=== PATIENT | male | born 1945 | race Caucasian/White ===

== ENCOUNTER 2017-04-23 15:38 | Emergency (ER) | payer MEDICARE ==
[2017-04-23] MEDS: PROVENTIL 2.5 MG/3 ML NEB IH ONE ×2 (15:46→20:03)
[2017-04-23] MEDS ORDERED: PROVENTIL 2.5 MG/3 ML NEB IH ONE ×2 (15:47→20:02)
[2017-04-23] MEDS ORDERED: ROCEPHIN 1 Gm-D5w 50 ml Bag** 1 G/50 ML IVPB IV ONE (16:02)
[2017-04-23] MEDS ORDERED: solu-MEDROL 125 MG ONE (16:02)
[2017-04-23] MEDS ORDERED: Sodium Chloride 0.9% 1000 ML 1,000 ML ONE (16:02)
--- NOTE | 2017-04-23 16:04 | ERPHSYRPT ---
- History of Present Illness Time Seen by Provider: 04/23/17 15:45 Source: patient, EMS Patient Subjective Stated Complaint: sob since wednesday. fever at home this week. nonproductive cough all week. sob noted on arrival. Triage Nursing Assessment: denies cp. fever and cough all week. labored breathing. skin warm and dry Physician History: CC: short of air hX: 71 y/o patient of Dr Mesa with hx of COPD and heart disease. He reports 5 day hx of cough, chills, short of air. He is on home oxygen 4 L. Worse today so called EMS. EMS noted initial pulse ox 60%. Improved on their oxygen and neb. Pt has no chest pain. Symptoms moderately severe. Severity of Dyspnea-Max: severe Severity of Dyspnea-Current: severe Allergies/Adverse Reactions: No Known Drug Allergies Allergy (Unverified 04/23/17 16:16) Home Medications: Aspirin 81 gm Chew [Baby Aspirin 81 mg Chew] 81 mg PO DAILY 07/02/14 [ History] Amlodipine Besylate 10 mg [Norvasc 10 MG] 10 mg PO QAM 06/17/16 [History] Atorvastatin Calcium 80 mg PO QPM 06/17/16 [History] Citalopram Hydrobromide [Celexa] 20 mg PO DAILY 06/17/16 [History] Diclofenac Sodium 75 mg PO BID 06/17/16 [History] Gabapentin [Neurontin] 2 tab PO BID 06/17/16 [History] Glipizide 5 mg [Glucotrol 5 MG] 5 mg PO UD 06/17/16 [History] Losartan Potassium 100 mg PO QPM 06/17/16 [History] Metformin HCl 500 mg [Glucophage 500 MG] 500 mg PO UD 06/17/16 [History] Tramadol HCl 50 mg [Ultram 50 mg] 50 mg PO HSPRN PRN 06/17/16 [History] Benzonatate 100 mg PO TID 04/23/17 [History] Pirfenidone [Esbriet] 801 mg PO TID 04/23/17 [History] Hx Tetanus, Diphtheria Vaccination/Date Given: Yes Hx Influenza Vaccination/Date Given: Yes Hx Pneumococcal Vaccination/Date Given: No Immunizations Up to Date: Yes - Review of Systems Constitutional: Chills, No Fever Eyes: No Symptoms Ears, Nose, & Throat: No Symptoms Respiratory: Cough, Dyspnea Cardiac: No Chest Pain Abdominal/Gastrointestinal: No Abdominal Pain, No Nausea, No Vomiting Genitourinary Symptoms: No Dysuria Musculoskeletal: No Back Pain Skin: No Rash Neurological: No Headache All Other Systems: Reviewed and Negative - Past Medical History Pertinent Past Medical History: Yes Neurological History: No Pertinent History ENT History: No Pertinent History Cardiac History: High Cholesterol, Hypertension, Other Respiratory History: Sleep Apnea Endocrine Medical History: Diabetes Type II Musculoskeletal History: Arthritis GI Medical History: Other History: No Pertinent History Psycho-Social History: Depression Male Reproductive Disorders: No Pertinent History Other Medical History: blood in stool - Past Surgical History Past Surgical History: Yes Neuro Surgical History: No Pertinent History Cardiac: Cardiac Catheterization, Cardiac Stent Respiratory: No Pertinent History Gastrointestinal: No Pertinent History Genitourinary: No Pertinent History Musculoskeletal: Orthopedic Surgery Male Surgical History: No Pertinent History Other Surgical History: NILES HIPS replacement. NILES SHOULDERS-surgery. LEFT FOOT. TONSILS ET ADNOID - Social History Smoking Status: Former smoker Exposure to second hand smoke: No Drug Use: none Patient Lives Alone: No - Nursing Vital Signs Nursing Vital Signs: Initial Vital Signs Temperature 99.9 F Temperature Source Rectal Pulse Rate 82 Respiratory Rate 22 Blood Pressure [Right Arm] 159/87 Pain Intensity 0 - Physical Exam General Appearance: alert Eye Exam: PERRL/EOMI Respiratory Exam: respiratory distress, diminished breath sounds Cardiovascular/Chest Exam: normal heart sounds, regular rate/rhythm Abdominal/Gastrointestinal Exam: soft, No tenderness, No distention Extremity Exam: non-tender, normal range of motion Neurologic Exam: alert, oriented x 3, cooperative, sensation nml, No motor deficits Skin Exam: warm, dry, No rash SpO2 Interpretation: hypoxic, ABG ordered, O2 applied SpO2: 68 Oxygen Delivery: Nasal Cannula - Course Nursing assessment & vital signs reviewed: Yes EKG Interpreted by Me: RATE (89), Sinus Rhythm, NORMAL AXIS, NORMAL INTERVALS, NORMAL QRS, NORMAL ST-T Ordered Tests: Active Orders 24 hr Category Date Time Status Driver License Examiner STAT Care 04/23/17 15:45 Active Clean Catch Urine Specimen STAT Care 04/23/17 15:45 Active EKG-ER Only STAT Care 04/23/17 15:46 Active IV Insertion STAT Care 04/23/17 15:46 Active Oxygen-ED Only NON-REBREATHER 100% Care 04/23/17 15:46 Active Pulse Oximetry (ED) STAT Care 04/23/17 15:45 Active Rectal Temperature STAT Care 04/23/17 15:46 Active Saline Lock STAT Care 04/23/17 15:45 Active CHEST 1 VIEW (PORTABLE) Stat Exams 04/23/17 15:46 Completed ABG [ARTERIAL BLOOD GASES] Stat Lab 04/23/17 18:15 Completed ARTERIAL BLOOD GASES Stat Lab 04/23/17 15:46 Completed BLOOD CULTURE Stat Lab 04/23/17 16:00 Received CBC W DIFF Stat Lab 04/23/17 15:30 Completed CMP Stat Lab 04/23/17 15:30 Completed CULTURE,URINE Stat Lab 04/23/17 15:45 Ordered Lactic Acid Stat Lab 04/23/17 15:45 Completed Lactic Acid Stat Lab 04/23/17 18:12 Completed NT PRO BNP Stat Lab 04/23/17 15:30 Completed PROTIME WITH INR Stat Lab 04/23/17 15:30 Completed PTT Stat Lab 04/23/17 15:30 Completed TROPONIN Stat Lab 04/23/17 16:29 Completed UA Stat Lab 04/23/17 15:45 Ordered Oxygen High Flow High Flow 40 lpm RT 04/23/17 16:15 Active Oxygen NON-REBREATHER 15% RT 04/23/17 16:16 Inactive Respiratory Nebulizer STAT RT 04/23/17 15:47 Completed Medication Summary Generic Name Dose Route Start Last Admin Trade Name Freq PRN Reason Stop Dose Admin Sodium Chloride 1,000 mls @ 100 mls/hr 04/23/17 16:00 04/23/17 16:07 Sodium Chloride 0.9% 1000 Ml IV 05/23/17 15:59 100 mls/hr .Q10H TANIKA Administration Discontinued Medications Generic Name Dose Route Start Last Admin Trade Name Freq PRN Reason Stop Dose Admin Albuterol Sulfate 2.5 mg 04/23/17 15:46 04/23/17 15:46 Proventil 2.5 Mg/3 Ml Neb IH 04/23/17 15:47 2.5 mg STAT ONE Administration Albuterol Sulfate Confirm 04/23/17 15:47 Proventil 2.5 Mg/3 Ml Neb Administered 04/23/17 15:48 Dose 2.5 mg IH .STK-MED ONE Ceftriaxone Sodium/Dextrose 1 g in 50 mls @ 100 mls/hr 04/23/17 15:46 16:08 Rocephin 1 Gm-D5w 50 Ml Bag IV 04/23/17 16:15 100 mls/hr STAT STA Administration Azithromycin 500 mg in 250 mls @ 250 mls/hr 04/23/17 15:46 04/23/17 16:45 Zithromax 500 Mg/ 250 Ml Nacl Premix IV 04/23/17 16:45 250 mls/hr STAT STA Administration Ceftriaxone Sodium/Dextrose Confirm 04/23/17 16:02 Rocephin 1 Gm-D5w 50 Ml Bag Administered 04/23/17 16:03 Dose 1 g in 50 mls @ ud IV .STK-MED ONE Azithromycin Confirm 04/23/17 16:41 Zithromax 500 Mg/ 250 Ml Nacl Premix Administered 04/23/17 16:42 Dose 500 mg in 250 mls @ ud IV .STK-MED ONE Methylprednisolone Sodium Succinate 125 mg 04/23/17 15:46 04/23/17 16:08 Solu-Medrol 125 Mg IV 04/23/17 15:47 125 mg STAT ONE Administration Methylprednisolone Sodium Succinate Confirm 04/23/17 16:02 Solu-Medrol 125 Mg Administered 04/23/17 16:03 Dose 125 mg .ROUTE .STK-MED ONE Lab/Rad Data: Laboratory Result Diagrams 04/23/17 15:30 04/23/17 15:30 Laboratory Results 04/23/17 04/23/17 04/23/17 Range/Units 18:15 18:12 16:29 WBC (4.0-10.5) K/mm3 RBC (4.1-5.6) M/mm3 Hgb (12.5-18.0) gm/dl Hct (42-50) % MCV (78-100) fl MCH (26-32) pg MCHC (32-36) g/dl RDW (11.5-14.0) % Plt Count (150-450) K/mm3 MPV (6-9.5) fl Gran % (36.0-66.0) % Lymphocytes % (24.0-44.0) % Monocytes % (0.0-12.0) % Eosinophils % (0.00-5.0) % Basophils % (0.0-0.4) % Basophils # (0-0.4) INR (0.8-3.0) APTT (24.1-36.1) SECONDS Puncture Site RIGHT BRACHIAL pCO2 36 (35-45) mmHg pO2 48 L* (75-100) mmHg Base Excess 1.2 (-2.0-2.0) O2 Saturation 85.7 L (94-100) g/dF ABG pH 7.45 (7.35-7.45) ABG HCO3 25.0 (22-28) ABG O2 Sat (Measured) 88.6 L (95-100) % Toño Test NOT APPLICABLE A-a Gradient 513 a/A Ratio 0.09 Hemoglobin 12.6 Carboxyhemoglobin 2.4 (0.0-6.9) % THgb Methemoglobin 0.9 L (1.4-1.5) % Temperature 37.0 C POC O2 Flow Rate 85 % Sodium (136-145) mEq/L Potassium 4.1 (3.5-5.1) mEq/L Chloride (98-107) mEq/L Carbon Dioxide (21-32) mEq/L Anion Gap (5-15) MEQ/L BUN (9-20) mg/dL Creatinine (0.55-1.30) mg/dl Estimated GFR ML/MIN Glucose (70-110) MG/DL Lactic Acid 1.2 (0.4-2.0) Calcium (8.5-10.1) mg/dL Total Bilirubin (0.2-1.0) mg/dL AST (15-37) U/L ALT (12-78) U/L Alkaline Phosphatase (46-116) U/L Troponin I < 0.017 (0.000-0.056) ng/ml NT-Pro-B Natriuret Pep (0-125) pg/ml Serum Total Protein (6.4-8.2) gm/dL Albumin (3.4-5.0) g/dL 04/23/17 04/23/17 04/23/17 Range/Units 15:46 15:45 15:30 WBC (4.0-10.5) K/mm3 RBC (4.1-5.6) M/mm3 Hgb (12.5-18.0) gm/dl Hct (42-50) % MCV (78-100) fl MCH (26-32) pg MCHC (32-36) g/dl RDW (11.5-14.0) % Plt Count (150-450) K/mm3 MPV (6-9.5) fl Gran % (36.0-66.0) % Lymphocytes % (24.0-44.0) % Monocytes % (0.0-12.0) % Eosinophils % (0.00-5.0) % Basophils % (0.0-0.4) % Basophils # (0-0.4) INR 1.22 (0.8-3.0) APTT 27.1 (24.1-36.1) SECONDS Puncture Site RIGHT RADIAL pCO2 37 (35-45) mmHg pO2 43 L* (75-100) mmHg Base Excess 0.5 (-2.0-2.0) O2 Saturation 78.6 L (94-100) g/dF ABG pH 7.43 (7.35-7.45) ABG HCO3 24.6 (22-28) ABG O2 Sat (Measured) 81.3 L (95-100) % Toño Test YES A-a Gradient 167 a/A Ratio 0.20 Hemoglobin 13.2 Carboxyhemoglobin 2.4 (0.0-6.9) % THgb Methemoglobin 0.9 L (1.4-1.5) % Temperature 37.0 C POC O2 Flow Rate 36 % Sodium (136-145) mEq/L Potassium 4.0 (3.5-5.1) mEq/L Chloride (98-107) mEq/L Carbon Dioxide (21-32) mEq/L Anion Gap (5-15) MEQ/L BUN (9-20) mg/dL Creatinine (0.55-1.30) mg/dl Estimated GFR ML/MIN Glucose (70-110) MG/DL Lactic Acid 2.3 H (0.4-2.0) Calcium (8.5-10.1) mg/dL Total Bilirubin (0.2-1.0) mg/dL AST (15-37) U/L ALT (12-78) U/L Alkaline Phosphatase (46-116) U/L Troponin I (0.000-0.056) ng/ml NT-Pro-B Natriuret Pep (0-125) pg/ml Serum Total Protein (6.4-8.2) gm/dL Albumin (3.4-5.0) g/dL 04/23/17 04/23/17 Range/Units 15:30 15:30 WBC 11.9 H (4.0-10.5) K/mm3 RBC 4.39 (4.1-5.6) M/mm3 Hgb 13.3 (12.5-18.0) gm/dl Hct 41.2 L (42-50) % MCV 93.8 (78-100) fl MCH 30.3 (26-32) pg MCHC 32.3 (32-36) g/dl RDW 14.0 (11.5-14.0) % Plt Count 333 (150-450) K/mm3 MPV 9.7 H (6-9.5) fl Gran % 80.4 H (36.0-66.0) % Lymphocytes % 8.8 L (24.0-44.0) % Monocytes % 9.1 (0.0-12.0) % Eosinophils % 1.3 (0.00-5.0) % Basophils % 0.4 (0.0-0.4) % Basophils # 0.05 (0-0.4) INR (0.8-3.0) APTT (24.1-36.1) SECONDS Puncture Site pCO2 (35-45) mmHg pO2 (75-100) mmHg Base Excess (-2.0-2.0) O2 Saturation (94-100) g/dF ABG pH (7.35-7.45) ABG HCO3 (22-28) ABG O2 Sat (Measured) (95-100) % Toño Test A-a Gradient a/A Ratio Hemoglobin Carboxyhemoglobin (0.0-6.9) % THgb Methemoglobin (1.4-1.5) % Temperature C POC O2 Flow Rate % Sodium 141 (136-145) mEq/L Potassium 4.4 (3.5-5.1) mEq/L Chloride 102 (98-107) mEq/L Carbon Dioxide 25.9 (21-32) mEq/L Anion Gap 17.7 H (5-15) MEQ/L BUN 19 (9-20) mg/dL Creatinine 1.15 (0.55-1.30) mg/dl Estimated GFR > 60 ML/MIN Glucose 276 H (70-110) MG/DL Lactic Acid (0.4-2.0) Calcium 8.8 (8.5-10.1) mg/dL Total Bilirubin 0.80 (0.2-1.0) mg/dL AST 30 (15-37) U/L ALT 35 (12-78) U/L Alkaline Phosphatase 72 (46-116) U/L Troponin I (0.000-0.056) ng/ml NT-Pro-B Natriuret Pep 358 H (0-125) pg/ml Serum Total Protein 7.1 (6.4-8.2) gm/dL Albumin 3.3 L (3.4-5.0) g/dL - Progress Progress Note: 04/23/17 18:45 CXR shows pulonary fibrosis with rather severe infiltrates diffusely. Placed on venti mask then NRB then High flow heated humidified nasal canula. Still low saturations on repeat gas. Changed to bipap. Called Dr Derick Gore who advised transfer to [place] ICU. Spok eot Dr Tim Campo and [place] transfer center for acceptance. Counseled pt/family regarding: lab results, diagnosis, need for follow-up, rad results - Departure Time of Disposition: 18:46 Departure Disposition: Transfer ([facility]) Clinical Impression: Acute respiratory failure, Hypoxemia, Pulmonary fibrosis Condition: Serious Critical Care Time: Yes Critical Care Time(excluding separately billable procedures): 30-74 minutes
[2017-04-23 16:06] LABS: A-aADO2 167; ARTERIAL BLD GAS O2 SATURATION 81.3 % (95-100); ARTERIAL BLOOD GAS BASE EXCESS 0.5 (-2.0-2.0); ARTERIAL BLOOD GAS FIO2 36 %; ARTERIAL BLOOD GAS pH 7.43 (7.35-7.45)
[2017-04-23 16:07] LABS: ALLEN TEST OK? YES; ARTERIAL BLOOD GAS PO2 43 mmHg (75-100)
[2017-04-23] MEDS: Sodium Chloride 0.9% 1000 ML 1,000 ML IV SCH (16:07)
[2017-04-23 16:08] LABS: BASOPHIL % 0.4 % (0.0-0.4); Eosinophil % 1.3 % (0.00-5.0); Granulocytes % 80.4 % (36.0-66.0); Lymphocytes % 8.8 % (24.0-44.0); Mean Cell Volume 93.8 fl (78-100); Mean Corpuscular Hemoglobin 30.3 pg (26-32); Mean Platelet Volume 9.7 fl (6-9.5); Monocytes % 9.1 % (0.0-12.0); Platelet Count 333 K/mm3 (150-450); Red Blood Count 4.39 M/mm3 (4.1-5.6); White Blood Count 11.9 K/mm3 (4.0-10.5)
[2017-04-23] MEDS: solu-MEDROL 125 MG IV ONE (16:08)
[2017-04-23] MEDS: ROCEPHIN 1 Gm-D5w 50 ml Bag** 1 G/50 ML IVPB IV STA (16:08)
[2017-04-23 16:12] LABS: Lactic Acid 2.3 (0.4-2.0)
[2017-04-23 16:17] LABS: INR 1.22 (0.8-3.0); PROTIME 13.6 SECONDS (8.83-12.87)
[2017-04-23 16:20] LABS: PTT 27.1 SECONDS (24.1-36.1)
--- NOTE | 2017-04-23 16:22 | XRAY ---
Indication: Short of breath. Comparison: None Portable chest moderately underinflated with diffuse bilateral interstitial alveolar opacities and small effusions. Heart is not enlarged for AP portable technique. Bony thorax intact with mild degenerative changes and resected distal right clavicle.
[2017-04-23 16:31] LABS: ALBUMIN 3.3 g/dL (3.4-5.0); ALKALINE PHOSPHATASE 72 U/L (46-116); ANION GAP 17.7 MEQ/L (5-15); BLOOD UREA NITROGEN 19 mg/dL (9-20); CHLORIDE 102 mEq/L (98-107); Carbon Dioxide 25.9 mEq/L (21-32); Glucose 276 MG/DL (70-110); Potassium 4.4 mEq/L (3.5-5.1); SGOT/AST 30 U/L (15-37); SGPT/ALT 35 U/L (12-78); SODIUM 141 mEq/L (136-145); Total Protein 7.1 gm/dL (6.4-8.2)
[2017-04-23] MEDS ORDERED: Zithromax 500 MG/ 250 ML NaCl Premix 500 MG/250 ML IVPB IV ONE (16:41)
[2017-04-23] MEDS: Zithromax 500 MG/ 250 ML NaCl Premix 500 MG/250 ML IVPB IV STA (16:45)
[2017-04-23 18:28] LABS: A-aADO2 513; ARTERIAL BLD GAS O2 SATURATION 88.6 % (95-100); ARTERIAL BLOOD GAS BASE EXCESS 1.2 (-2.0-2.0); ARTERIAL BLOOD GAS FIO2 85 %; ARTERIAL BLOOD GAS pH 7.45 (7.35-7.45)
[2017-04-23 18:29] LABS: ARTERIAL BLOOD GAS PO2 48 mmHg (75-100)
[2017-04-23 20:03] VITALS: BP 164/80
[2017-04-23 20:13] VITALS: PULSE 82; O2SAT 97
[2017-04-23 21:20] LABS: COMPLETE URINE MICROSCOPIC? YES; Collection Type CLEAN CATCH; Ph 5.5 (5-6)
[2017-04-23 21:21] LABS: Bacteria MODERATE /HPF (NEGATIVE); Epithelial Cells FEW /HPF (FEW); Hyaline Casts 0-2 /LPF (0-2); Mucus MODERATE /HPF (NEGATIVE); WBC 0-2 /HPF (0-5)
== END 2017-04-23 20:45 | disposition short-term general hospital (02) ==
LOC: ED 15:38
DX: J96.00 Acute respiratory failure, unspecified whether with hypoxia or hypercapnia (principal); R09.02 Hypoxemia; J84.10 Pulmonary fibrosis, unspecified; R05 Cough; R06.00 Dyspnea, unspecified
CPT/HCPCS: 36415; 36600; 71010; 80053; 81000; 82375; 82803; 83605; 83880; 84484; 85025; 85610; 85730; 87040; 87086; 93005; 93041; 94002; 94640; 94799; 96360; 96361; 96365; 96367; 96374; 99285; J0456; J0696; J2930; A9270-GY

== ENCOUNTER 2017-05-08 01:36 | Inpatient (IN) | payer MEDICARE ==
[2017-05-08] MEDS ORDERED: Zithromax 500 MG/ 250 ML NaCl Premix 500 MG/250 ML IVPB IV STA (01:39)
[2017-05-08] MEDS ORDERED: ROCEPHIN 1 Gm-D5w 50 ml Bag** 1 G/50 ML IVPB IV STA (01:39)
[2017-05-08] MEDS ORDERED: Xopenex 1.25 MG/0.5 ML UD NEBULE IH ONE ×2 (01:39→02:25)
[2017-05-08] MEDS ORDERED: Sodium Chloride 0.9% 1000 ML 1,000 ML IV SCH (01:45)
--- NOTE | 2017-05-08 01:51 | ERPHSYRPT ---
- History of Present Illness Time Seen by Provider: 05/08/17 01:36 Source: patient Exam Limitations: no limitations Physician History: FOR THE PAST WEEK PT HAS HAD SHORTNESS OF AIR WITH A COUGH PRODUCTIVE OF BLOOD TINGED PHLEGM. PT WAS ADMITTED TO [facility] FOR 1 WEEK AND DISCHARGED YESTERDAY. PT ALSO C/O HIS FEET SWELLING SINCE YESTERDAY. PT DENIES CHEST PAIN, FEVER, VOMITING. Allergies/Adverse Reactions: No Known Drug Allergies Allergy (Unverified 04/23/17 16:16) Home Medications: Aspirin 81 gm Chew [Baby Aspirin 81 mg Chew] 81 mg PO DAILY 07/02/14 [ History] Amlodipine Besylate 10 mg [Norvasc 10 MG] 10 mg PO QAM 06/17/16 [History] Atorvastatin Calcium 80 mg PO QPM 06/17/16 [History] Citalopram Hydrobromide [Celexa] 20 mg PO DAILY 06/17/16 [History] Diclofenac Sodium 75 mg PO BID 06/17/16 [History] Gabapentin [Neurontin] 2 tab PO BID 06/17/16 [History] Glipizide 5 mg [Glucotrol 5 MG] 5 mg PO UD 06/17/16 [History] Losartan Potassium 100 mg PO QPM 06/17/16 [History] Metformin HCl 500 mg [Glucophage 500 MG] 500 mg PO UD 06/17/16 [History] Tramadol HCl 50 mg [Ultram 50 mg] 50 mg PO HSPRN PRN 06/17/16 [History] Benzonatate 100 mg PO TID 04/23/17 [History] Pirfenidone [Esbriet] 801 mg PO TID 04/23/17 [History] Hx Tetanus, Diphtheria Vaccination/Date Given: Yes Hx Influenza Vaccination/Date Given: Yes Hx Pneumococcal Vaccination/Date Given: No - Review of Systems Constitutional: No Fever Respiratory: Cough, Dyspnea Cardiac: No Chest Pain Abdominal/Gastrointestinal: No Vomiting Musculoskeletal: Other (FEET SWELLING) Neurological: No Headache All Other Systems: Reviewed and Negative - Past Medical History Pertinent Past Medical History: Yes Neurological History: No Pertinent History ENT History: No Pertinent History Cardiac History: High Cholesterol, Hypertension, Other Respiratory History: Sleep Apnea Endocrine Medical History: Diabetes Type II Musculoskeletal History: Arthritis GI Medical History: Other History: No Pertinent History Psycho-Social History: Depression Male Reproductive Disorders: No Pertinent History Other Medical History: blood in stool - Past Surgical History Past Surgical History: Yes Neuro Surgical History: No Pertinent History Cardiac: Cardiac Catheterization, Cardiac Stent Respiratory: No Pertinent History Gastrointestinal: No Pertinent History Genitourinary: No Pertinent History Musculoskeletal: Orthopedic Surgery Male Surgical History: No Pertinent History Other Surgical History: NILES HIPS replacement. NILES SHOULDERS-surgery. LEFT FOOT. TONSILS ET ADNOID - Social History Smoking Status: Former smoker Exposure to second hand smoke: No Drug Use: none Patient Lives Alone: No - Nursing Vital Signs Nursing Vital Signs: Initial Vital Signs Temperature 97.0 F Temperature Source Oral Pulse Rate 76 Respiratory Rate 25 Blood Pressure [] 123/64 Pain Intensity 0 - Physical Exam General Appearance: alert Eye Exam: PERRL/EOMI Ears, Nose, Throat Exam: normal pharynx, No normal ENT inspection (CERUMEN OCCLUSION OF BOTH EARS) Neck Exam: normal inspection Respiratory Exam: respiratory distress, airway intact, wheezing (MINIMAL EXPIRATORY WHEEZING OVER POSTERIOR BASES.) Cardiovascular/Chest Exam: tachycardia Abdominal/Gastrointestinal Exam: soft, normal bowel sounds Extremity Exam: pedal edema (+1 PEDAL EDEMA BILATERALLY) Peripheral Pulses Exam: dorsalis-pedis (R): 2+, dorsalis-pedis (L): 2+ Neurologic Exam: alert, cooperative Skin Exam: warm, dry SpO2 Interpretation: hypoxic SpO2: 82 Oxygen Delivery: Room Air - Course Nursing assessment & vital signs reviewed: Yes EKG Interpreted by Me: RATE (89), Sinus Rhythm, NORMAL AXIS, NORMAL INTERVALS - Radiology Exams Chest X-ray Interpretation: Interpreted by me (BILATERAL INFILTRATES) Ordered Tests: Active Orders 24 hr Category Date Time Status Upholstery Department Supervisor STAT Care 05/08/17 01:39 Active Clean Catch Urine Specimen STAT Care 05/08/17 01:39 Active EKG-ER Only STAT Care 05/08/17 01:39 Active IV Insertion STAT Care 05/08/17 01:39 Active Pulse Oximetry (ED) STAT Care 05/08/17 01:39 Active CHEST 1 VIEW (PORTABLE) Stat Exams 05/08/17 01:40 Taken AMYLASE Stat Lab 05/08/17 01:15 Completed ARTERIAL BLOOD GASES Stat Lab 05/08/17 01:55 Completed BLOOD CULTURE Stat Lab 05/08/17 01:59 Received CBC W DIFF Stat Lab 05/08/17 01:15 Completed CMP Stat Lab 05/08/17 01:15 Completed CULTURE,SPUTUM Stat Lab 05/08/17 01:40 Uncollected LIPASE Stat Lab 05/08/17 01:15 Completed Lactic Acid Urgent Lab 05/08/17 02:01 Results MAGNESIUM Stat Lab 05/08/17 01:15 Completed Manual Differential NC Stat Lab 05/08/17 01:15 Completed NT PRO BNP Stat Lab 05/08/17 01:15 Completed PROTIME WITH INR Stat Lab 05/08/17 01:15 Completed PTT Stat Lab 05/08/17 01:15 Completed TROPONIN Stat Lab 05/08/17 01:15 Completed UA W/RFX UR CULTURE Stat Lab 05/08/17 01:40 Ordered BiPap/CPAP Assessment STAT RT 05/08/17 01:39 Completed Respiratory Nebulizer STAT RT 05/08/17 02:29 Completed Medication Summary Generic Name Dose Route Start Last Admin Trade Name Freq PRN Reason Stop Dose Admin Sodium Chloride 1,000 mls @ 100 mls/hr 05/08/17 01:45 05/08/17 02:05 Sodium Chloride 0.9% 1000 Ml IV 06/07/17 01:44 100 mls/hr .Q10H TANIKA Administration Discontinued Medications Generic Name Dose Route Start Last Admin Trade Name Freq PRN Reason Stop Dose Admin Furosemide 40 mg 05/08/17 02:26 05/08/17 02:59 Lasix 40 Mg/4 Ml IV 05/08/17 02:27 40 mg STAT ONE Administration Furosemide Confirm 05/08/17 02:56 Lasix 40 Mg/4 Ml Administered 05/08/17 02:57 Dose 40 mg .ROUTE .STK-MED ONE Ceftriaxone Sodium/Dextrose 1 g in 50 mls @ 100 mls/hr 05/08/17 01:39 02:05 Rocephin 1 Gm-D5w 50 Ml Bag IV 05/08/17 02:08 100 mls/hr STAT STA Administration Azithromycin 500 mg in 250 mls @ 250 mls/hr 05/08/17 01:39 05/08/17 02:05 Zithromax 500 Mg/ 250 Ml Nacl Premix IV 05/08/17 02:38 250 mls/hr STAT STA Administration Azithromycin Confirm 05/08/17 02:01 Zithromax 500 Mg/ 250 Ml Nacl Premix Administered 05/08/17 02:02 Dose 500 mg in 250 mls @ ud IV .STK-MED ONE Ceftriaxone Sodium/Dextrose Confirm 05/08/17 02:01 Rocephin 1 Gm-D5w 50 Ml Bag Administered 05/08/17 02:02 Dose 1 g in 50 mls @ ud IV .STK-MED ONE Sodium Chloride 1,000 mls @ 999 mls/hr 05/08/17 02:11 05/08/17 02:58 Sodium Chloride 0.9% 1000 Ml IV 05/08/17 03:11 999 mls/hr .Q1H1M STA Administration Magnesium Sulfate/Dextrose 100 mls @ 200 mls/hr 05/08/17 02:26 05/08/17 02:58 Magnesium 1 Gm / 100 Ml D5w IV 05/08/17 02:55 200 mls/hr STAT ONE Administration Magnesium Sulfate/Dextrose Confirm 05/08/17 02:56 Magnesium 1 Gm / 100 Ml D5w Administered 05/08/17 02:57 Dose 100 mls @ ud IV .STK-MED ONE Insulin Human Regular 5 unit 05/08/17 02:59 05/08/17 03:27 Novolin R IV 05/08/17 03:00 5 unit STAT ONE Administration Insulin Human Regular Confirm 05/08/17 03:25 Novolin R Administered 05/08/17 03:26 Dose 5 unit .ROUTE .STK-MED ONE Levalbuterol HCl 1.25 mg 05/08/17 01:39 05/08/17 02:26 Xopenex 1.25 Mg/0.5 Ml Ud Nebule IH 05/08/17 01:40 1.25 mg STAT ONE Administration Levalbuterol HCl Confirm 05/08/17 02:25 Xopenex 1.25 Mg/0.5 Ml Ud Nebule Administered 05/08/17 02:26 Dose 1.25 mg IH .STK-MED ONE Sodium Chloride Confirm 05/08/17 02:25 Sodium Chloride 3 Ml Ud Nebules Administered 05/08/17 02:26 Dose 3 ml IH .STK-MED ONE Lab/Rad Data: Laboratory Result Diagrams 05/08/17 01:15 05/08/17 01:15 Laboratory Results 05/08/17 05/08/17 05/08/17 Range/Units 02:01 01:55 01:15 WBC (4.0-10.5) K/mm3 RBC (4.1-5.6) M/mm3 Hgb (12.5-18.0) gm/dl Hct (42-50) % MCV (78-100) fl MCH (26-32) pg MCHC (32-36) g/dl RDW (11.5-14.0) % Plt Count (150-450) K/mm3 MPV (6-9.5) fl Segmented Neutrophils (36.-66.) % Band Neutrophils (0.0-2.0) % Lymphocytes (Manual) (24-44) % Monocytes (Manual) (0.0-12.0) % Eosinophils (Manual) (0.00-3.0) % Differential Comment Platelet Estimate (NORMAL) Hypochromasia Poikilocytosis Schistocytes INR 1.04 (0.8-3.0) APTT 20.2 L (24.1-36.1) SECONDS Puncture Site RIGHT RADIAL pCO2 38 (35-45) mmHg pO2 73 L (75-100) mmHg Base Excess 7.6 H (-2.0-2.0) O2 Saturation 93.9 L (94-100) g/dF ABG pH 7.52 H (7.35-7.45) ABG HCO3 31.0 H* (22-28) ABG O2 Sat (Measured) 97.8 (95-100) % Toño Test YES A-a Gradient 593 a/A Ratio 0.11 Hemoglobin 12.5 Carboxyhemoglobin 3.1 (0.0-6.9) % THgb Methemoglobin 0.9 L (1.4-1.5) % Temperature 37.0 C POC O2 Flow Rate 100 % Vent Mode BiPAP Inspiratory BiPAP 14 Expiratory BiPAP 6 Sodium (136-145) mEq/L Potassium 3.6 (3.5-5.1) mEq/L Chloride (98-107) mEq/L Carbon Dioxide (21-32) mEq/L Anion Gap (5-15) MEQ/L BUN (9-20) mg/dL Creatinine (0.55-1.30) mg/dl Estimated GFR ML/MIN Glucose (70-110) MG/DL Lactic Acid 2.2 H (0.4-2.0) Calcium (8.5-10.1) mg/dL Magnesium (1.8-2.4) mg/dL Total Bilirubin (0.2-1.0) mg/dL AST (15-37) U/L ALT (12-78) U/L Alkaline Phosphatase (46-116) U/L Troponin I (0.000-0.056) ng/ml NT-Pro-B Natriuret Pep (0-125) pg/ml Serum Total Protein (6.4-8.2) gm/dL Albumin (3.4-5.0) g/dL Amylase (25-115) U/L Lipase (73-393) U/L 05/08/17 05/08/17 05/08/17 Range/Units 01:15 01:15 01:15 WBC 19.8 H (4.0-10.5) K/mm3 RBC 4.43 (4.1-5.6) M/mm3 Hgb 13.4 (12.5-18.0) gm/dl Hct 41.1 L (42-50) % MCV 92.8 (78-100) fl MCH 30.2 (26-32) pg MCHC 32.6 (32-36) g/dl RDW 14.3 H (11.5-14.0) % Plt Count 336 (150-450) K/mm3 MPV 9.7 H (6-9.5) fl Segmented Neutrophils 85 H (36.-66.) % Band Neutrophils 1 (0.0-2.0) % Lymphocytes (Manual) 8 L (24-44) % Monocytes (Manual) 3 (0.0-12.0) % Eosinophils (Manual) 3 (0.00-3.0) % Differential Comment ABNORMAL Platelet Estimate NORMAL (NORMAL) Hypochromasia 1+ Poikilocytosis 1+ Schistocytes 1+ INR (0.8-3.0) APTT (24.1-36.1) SECONDS Puncture Site pCO2 (35-45) mmHg pO2 (75-100) mmHg Base Excess (-2.0-2.0) O2 Saturation (94-100) g/dF ABG pH (7.35-7.45) ABG HCO3 (22-28) ABG O2 Sat (Measured) (95-100) % Toño Test A-a Gradient a/A Ratio Hemoglobin Carboxyhemoglobin (0.0-6.9) % THgb Methemoglobin (1.4-1.5) % Temperature C POC O2 Flow Rate % Vent Mode Inspiratory BiPAP Expiratory BiPAP Sodium 143 (136-145) mEq/L Potassium 3.7 (3.5-5.1) mEq/L Chloride 103 (98-107) mEq/L Carbon Dioxide 29.6 (21-32) mEq/L Anion Gap 13.8 (5-15) MEQ/L BUN 22 H (9-20) mg/dL Creatinine 1.09 (0.55-1.30) mg/dl Estimated GFR > 60 ML/MIN Glucose 322 H (70-110) MG/DL Lactic Acid (0.4-2.0) Calcium 8.5 (8.5-10.1) mg/dL Magnesium 1.7 L (1.8-2.4) mg/dL Total Bilirubin 1.30 H (0.2-1.0) mg/dL AST 20 (15-37) U/L ALT 41 (12-78) U/L Alkaline Phosphatase 70 (46-116) U/L Troponin I 0.051 (0.000-0.056) ng/ml NT-Pro-B Natriuret Pep 191 H (0-125) pg/ml Serum Total Protein 5.9 L (6.4-8.2) gm/dL Albumin 3.1 L (3.4-5.0) g/dL Amylase 47 (25-115) U/L Lipase 227 (73-393) U/L - Progress Discussed with : Bonita (OBS - [id number]) - Departure Time of Disposition: 03:49 Departure Disposition: Observation Clinical Impression: DYSPNEA, BILATERAL PNEUMONIA, HTN, DM, ARTHRITIS, DEPRESSION Condition: Stable Critical Care Time: No Referrals: DAKOTA DOE MD [Primary Care Provider] -
[2017-05-08 01:54] LABS: Mean Cell Volume 92.8 fl (78-100); Mean Corpuscular Hemoglobin 30.2 pg (26-32); Mean Platelet Volume 9.7 fl (6-9.5); Platelet Count 336 K/mm3 (150-450); Red Blood Count 4.43 M/mm3 (4.1-5.6); Red Cell Distribution Width 14.3 % (11.5-14.0); White Blood Count 19.8 K/mm3 (4.0-10.5)
[2017-05-08] MEDS ORDERED: ROCEPHIN 1 Gm-D5w 50 ml Bag** 1 G/50 ML IVPB IV ONE (02:01)
[2017-05-08] MEDS ORDERED: Zithromax 500 MG/ 250 ML NaCl Premix 500 MG/250 ML IVPB IV ONE (02:01)
[2017-05-08] MEDS ORDERED: Sodium Chloride 0.9% 1000 ML 1,000 ML ONE ×2 (02:01→02:56)
[2017-05-08 02:02] LABS: A-aADO2 593; ALLEN TEST OK? YES; ARTERIAL BLD GAS O2 SATURATION 97.8 % (95-100); ARTERIAL BLOOD GAS BASE EXCESS 7.6 (-2.0-2.0); ARTERIAL BLOOD GAS FIO2 100 %; ARTERIAL BLOOD GAS PO2 73 mmHg (75-100); ARTERIAL BLOOD GAS pH 7.52 (7.35-7.45); BIPAP(E) 6; BIPAP(I) 14
[2017-05-08 02:04] LABS: INR 1.04 (0.8-3.0); PROTIME 11.8 SECONDS (8.83-12.87)
[2017-05-08 02:04] LABS: Lactic Acid 2.2 (0.4-2.0)
[2017-05-08 02:06] LABS: PTT 20.2 SECONDS (24.1-36.1)
[2017-05-08 02:07] LABS: ANION GAP 13.8 MEQ/L (5-15); CHLORIDE 103 mEq/L (98-107); Carbon Dioxide 29.6 mEq/L (21-32); Glucose 322 MG/DL (70-110); Potassium 3.7 mEq/L (3.5-5.1); SODIUM 143 mEq/L (136-145)
[2017-05-08] MEDS ORDERED: Sodium Chloride 0.9% 1000 ML 1,000 ML IV STA (02:11)
[2017-05-08] MEDS ORDERED: Sodium Chloride 3 ML UD NEBULES IH ONE (02:25)
[2017-05-08] MEDS ORDERED: Magnesium 1 Gm / 100 Ml D5W*** 100 ML IV ONE ×2 (02:26→02:56)
[2017-05-08] MEDS ORDERED: Lasix 40 MG/4 ML IV ONE (02:26)
[2017-05-08 02:51] LABS: ALBUMIN 3.1 g/dL (3.4-5.0); ALKALINE PHOSPHATASE 70 U/L (46-116); BLOOD UREA NITROGEN 22 mg/dL (9-20); LIPASE 227 U/L (73-393); SGOT/AST 20 U/L (15-37); SGPT/ALT 41 U/L (12-78); TROPONIN 0.051 ng/ml (0.000-0.056); Total Protein 5.9 gm/dL (6.4-8.2)
[2017-05-08] MEDS ORDERED: Lasix 40 MG/4 ML ONE (02:56)
[2017-05-08] MEDS ORDERED: NovoLIN R IV ONE (02:59)
[2017-05-08 03:06] LABS: BAND 1 % (0.0-2.0); Eosinophil 3 % (0.00-3.0); Hypochromia 1+; Platelet Estimate NORMAL (NORMAL); Total Cells Counted 100
[2017-05-08 03:07] LABS: Poikilocytosis 1+; Schistocytes 1+
[2017-05-08] MEDS ORDERED: NovoLIN R ONE (03:25)
[2017-05-08] MEDS ORDERED: Robitussin-Dm Syrup PO PRN (04:31)
[2017-05-08] MEDS ORDERED: Phenergan 25 MG INJ IV PRN (04:31)
[2017-05-08] MEDS ORDERED: PROVENTIL 2.5 MG/3 ML NEB IH PRN (04:31)
[2017-05-08] MEDS ORDERED: TYLENOL 325 MG PO PRN (04:31)
[2017-05-08 04:37] LABS: ADD URINE CULTURE? NO (NO); Bacteria FEW /HPF (NEGATIVE); Bilirubin NEGATIVE (NEGATIVE); COMPLETE URINE MICROSCOPIC? YES; Collection Type CLEAN CATCH; Epithelial Cells FEW /HPF (FEW); Glucose 1000 mg/dL (NEGATIVE); Leukocyte Esterase NEGATIVE (NEGATIVE); Mucus SLIGHT /HPF (NEGATIVE); WBC 0-2 /HPF (0-5)
[2017-05-08] MEDS: Sodium Chloride 0.9% 1000 ML 1,000 ML IV SCH ×2 (04:50→16:47)
[2017-05-08] MEDS: DUONEB 0.5-3 MG/3 ml Neb IH SCH ×5 (07:30→23:10)
[2017-05-08 07:52] LABS: Mean Cell Volume 92.7 fl (78-100); Mean Corpuscular Hemoglobin 30.7 pg (26-32); Mean Platelet Volume 9.5 fl (6-9.5); Platelet Count 258 K/mm3 (150-450); Red Blood Count 3.97 M/mm3 (4.1-5.6); Red Cell Distribution Width 14.2 % (11.5-14.0)
[2017-05-08] MEDS: NovoLOG Insulin SQ PRN ×4 (07:57→21:42)
[2017-05-08 08:10] LABS: ALBUMIN 2.8 g/dL (3.4-5.0); ALKALINE PHOSPHATASE 56 U/L (46-116); ANION GAP 9.6 MEQ/L (5-15); BLOOD UREA NITROGEN 21 mg/dL (9-20); CHLORIDE 103 mEq/L (98-107); Carbon Dioxide 34.4 mEq/L (21-32); Glucose 333 MG/DL (70-110); Potassium 3.9 mEq/L (3.5-5.1); SGOT/AST 17 U/L (15-37); SGPT/ALT 36 U/L (12-78); SODIUM 143 mEq/L (136-145); Total Protein 5.4 gm/dL (6.4-8.2)
--- NOTE | 2017-05-08 08:18 | XRAY ---
Indication: Short of breath. Comparison: April 23, 2017. Portable chest unchanged again demonstrating diffuse bilateral interstitial alveolar opacities and small effusions. Heart is not enlarged for AP portable technique. No new cardiopulmonary abnormalities.
[2017-05-08 08:27] LABS: Platelet Estimate NORMAL (NORMAL); Total Cells Counted 100
[2017-05-08 08:28] LABS: Toxic Granulation 1+
[2017-05-08] MEDS: solu-MEDROL 125 MG IV SCH ×3 (09:11→21:38)
--- NOTE | 2017-05-08 11:37 | PCM.HP ---
History of Present Illness - Chief Complaint Chief Complaint: c/o severe shortness of breath for 2-3 days History of Present Illness: is a 71 year old male.came to ER with severe shortness of breath for 1-2 days. Patient was just dicharged home yesterday from [facility] with 15 L of O2 . Patient has severe pulmonary fibrosis and COPD and recently has bibasilar pneumonia. - Review of Systems Constitutional: No Fever, No Chills Eyes: No Symptoms Ears, Nose, & Throat: No Symptoms Respiratory: Cough, Orthopnea, Short Of Breath, Wheezing Cardiac: No Chest Pain, No Edema, No Syncope Abdominal/Gastrointestinal: No Abdominal Pain, No Nausea, No Vomiting, No Diarrhea Genitourinary Symptoms: No Dysuria Musculoskeletal: No Back Pain, No Neck Pain Skin: No Rash Neurological: No Dizziness, No Focal Weakness, No Sensory Changes Psychological: No Symptoms Endocrine: No Symptoms Hematologic/Lymphatic: No Symptoms Immunological/Allergic: No Symptoms Medications & Allergies Home Medications: Home Medication List Aspirin 81 gm Chew [Baby Aspirin 81 mg Chew] 81 mg PO DAILY 07/02/14 [ History Confirmed 05/08/17] Amlodipine Besylate 10 mg [Norvasc 10 MG] 10 mg PO QAM 06/17/16 [History Confirmed 05/08/17] Atorvastatin Calcium 80 mg PO QPM 06/17/16 [History Confirmed 05/08/17] Citalopram Hydrobromide [Celexa] 20 mg PO DAILY 06/17/16 [History Confirmed ] Diclofenac Sodium 75 mg PO BID 06/17/16 [History Confirmed 05/08/17] Gabapentin [Neurontin] 2 tab PO BID 06/17/16 [History Confirmed 05/08/17] Glipizide 5 mg [Glucotrol 5 MG] 5 mg PO BREAKFAST 06/17/16 [History Confirmed 05/08/17] Losartan Potassium 100 mg PO QPM 06/17/16 [History Confirmed 05/08/17] Metformin HCl 500 mg [Glucophage 500 MG] 1,000 mg PO BREAKFAST 06/17/16 [ History Confirmed 05/08/17] Tramadol HCl 50 mg [Ultram 50 mg] 50 mg PO HSPRN PRN 06/17/16 [History Confirmed 05/08/17] Benzonatate 100 mg PO TID 04/23/17 [History Confirmed 05/08/17] Pirfenidone [Esbriet] 801 mg PO TIDWMEALS 04/23/17 [History Confirmed 05/08/17] Glipizide 5 mg [Glucotrol 5 MG] 2.5 mg PO DINNER 05/08/17 [History Confirmed 05/08/17] Metformin HCl 500 mg [Glucophage 500 MG] 500 mg PO DINNER 05/08/17 [ History Confirmed 05/08/17] Allergies/Adverse Reactions: Allergies Allergy/AdvReac Type Severity Reaction Status Date / Time No Known Drug Allergies Allergy Unverified 04/23/17 16:16 - Past Medical History Past Medical History: Yes Neurological History: No Pertinent History ENT History: No Pertinent History Cardiac History: High Cholesterol, Hypertension, Other Respiratory History: CHF, COPD, Pneumonia, Sleep Apnea Endocrine Medical History: Diabetes Type II Musculoskelatal History: Arthritis GI Medical History: No Pertinent History History: No Pertinent History Pyscho-Social History: Depression Male Reproductive Disorders: No Pertinent History Comment: stents, skin CA - Past Surgical History Past Surgical History: Yes Neuro Surgical History: No Pertinent History Cardiac History: Cardiac Catheterization, Cardiac Stent Respiratory Surgery: No Pertinent History GI Surgical History: No Pertinent History Genitourinary Surgical Hx: No Pertinent History Musculskeletal Surgical Hx: Orthopedic Surgery Male Surgical History: No Pertinent History Other Surgical History: NILES HIPS replacement. NILES SHOULDERS-surgery. LEFT FOOT - Social History Smoking Status: Former smoker Exposure to second hand smoke: No Alcohol: None Drug Use: none - Physical Exam Vital Signs: Vital Signs - 24 hr Temp Pulse Resp BP Pulse Ox 05/08/17 09:00 98.5 F 77 22 144/68 97 05/08/17 08:00 97.3 F 69 22 145/75 90 L 05/08/17 07:00 66 22 90 L 05/08/17 05:47 60 22 90 L 05/08/17 05:07 98.7 F 64 11 L 134/69 89 L 05/08/17 03:49 82 L 05/08/17 03:10 76 25 H 123/64 91 L 05/08/17 02:45 78 20 104/49 97 05/08/17 02:29 79 30 H 96 05/08/17 02:15 86 27 H 114/67 94 L 05/08/17 01:44 34 H 91 L 05/08/17 01:41 97.0 F 106 H 34 H 128/63 82 L 05/08/17 01:39 91 L Oxygen-Last 24 hours O2 Percentage 100% O2 Percentage 100% O2 Percentage 100% O2 Percentage 100% O2 Percentage 100% General Appearance: no apparent distress, alert Neurologic Exam: alert, oriented x 3, cooperative, normal mood/affect, nml cerebellar function, nml station & gait, sensation nml, No motor deficits Eye Exam: PERRL/EOMI, eyes nml inspection Ears, Nose, Throat Exam: normal ENT inspection, TMs normal, pharynx normal, moist mucous membranes Neck Exam: normal inspection, non-tender, supple, full range of motion Respiratory Exam: diminished breath sounds, accessory muscle use, prolonged expirations, crackles/rales, rhonchi, wheezing, No respiratory distress Cardiovascular Exam: regular rate/rhythm, normal heart sounds, normal peripheral pulses Gastrointestinal/Abdomen Exam: soft, normal bowel sounds, No tenderness, No mass Back Exam: normal inspection, normal range of motion, No CVA tenderness, No vertebral tenderness Extremity Exam: normal inspection, normal range of motion, pelvis stable Skin Exam: normal color, warm, dry, No rash Lymphatic Exam: No adenopathy Assessment/Plan (1) Acute respiratory failure Current Visit: No Status: Acute Qualifiers: Respiratory failure complication: hypoxia and hypercapnia Qualified Code(s) : J96.01 - Acute respiratory failure with hypoxia; J96.02 - Acute respiratory failure with hypercapnia Assessment & Plan: will continue BIPAP, respiratory support Code(s): J96.00 - ACUTE RESPIRATORY FAILURE, UNSP W HYPOXIA OR HYPERCAPNIA (2) HTN (hypertension) Current Visit: Yes Status: Acute Qualifiers: Hypertension type: essential hypertension Qualified Code(s): I10 - Essential (primary) hypertension Code(s): I10 - ESSENTIAL (PRIMARY) HYPERTENSION (3) Hypoxemia Current Visit: No Status: Acute Code(s): R09.02 - HYPOXEMIA (4) Pulmonary fibrosis Current Visit: Yes Status: Chronic Code(s): J84.10 - PULMONARY FIBROSIS, UNSPECIFIED (5) Type 2 diabetes mellitus Current Visit: Yes Status: Acute Qualifiers: Diabetes mellitus complication status: with hyperglycemia Diabetes mellitus fci insulin use: unspecified fci insulin use status Qualified Code(s): E11.65 - Type 2 diabetes mellitus with hyperglycemia
[2017-05-08] MEDS ORDERED: ULTRAM 50 MG PO PRN (12:27)
[2017-05-08] MEDS ORDERED: MEDICATION INTERVENTION MC PRN (12:40)
[2017-05-08] MEDS: NORVASC 5 MG PO SCH (13:46)
[2017-05-08] MEDS: Cozaar 50 MG PO SCH ×2 (13:47→21:21)
[2017-05-08] MEDS: ceLEXa 20 MG PO SCH (13:47)
[2017-05-08] MEDS: ECOTRIN 81 MG PO SCH (13:48)
[2017-05-08] MEDS: NEURONTIN 300 MG PO SCH ×2 (13:48→21:44)
[2017-05-08] MEDS: ENOXAPARIN SODIUM SQ SCH (13:50)
[2017-05-08] MEDS: Glucophage 500 MG PO SCH ×2 (14:00→16:45)
[2017-05-08] MEDS: Tessalon Perles 100 MG PO SCH ×2 (15:21→21:44)
[2017-05-08] MEDS: Glucotrol 5 MG PO SCH (16:46)
[2017-05-08] MEDS ORDERED: PIRFENIDONE 801 MG PO SCH (17:00)
[2017-05-08] MEDS: VOLTAREN 50 MG PO SCH (18:41)
[2017-05-08] MEDS: ROCEPHIN 1 Gm-D5w 50 ml Bag** 1 G/50 ML IVPB IV SCH (21:40)
[2017-05-08] MEDS: ZOCOR 20MG PO SCH (21:44)
[2017-05-08] MEDS ORDERED: NON-FORMULARY ITEM (Diclofenac Sodium [Diclofenac Sodium] 75 MG) PO SCH (22:00)
[2017-05-08] MEDS ORDERED: LIPITOR 40MG PO SCH (22:00)
[2017-05-08] MEDS ORDERED: NON-FORMULARY ITEM (Losartan Potassium [Losartan Potassium] 100 MG) PO SCH (22:00)
[2017-05-08] MEDS ORDERED: NON-FORMULARY ITEM (Atorvastatin Calcium [Atorvastatin Calcium] 80 MG) PO SCH (22:00)
[2017-05-08] MEDS: Zithromax 500 MG/ 250 ML NaCl Premix 500 MG/250 ML IVPB IV SCH (22:24)
[2017-05-09] MEDS: DUONEB 0.5-3 MG/3 ml Neb IH SCH ×6 (03:12→22:39)
[2017-05-09] MEDS: solu-MEDROL 125 MG IV SCH ×4 (03:19→22:31)
[2017-05-09] MEDS: Sodium Chloride 0.9% 1000 ML 1,000 ML IV SCH ×2 (04:32→15:31)
[2017-05-09] MEDS: Glucotrol 5 MG PO SCH ×2 (08:13→17:50)
[2017-05-09] MEDS: Glucophage 500 MG PO SCH ×2 (08:13→17:50)
[2017-05-09] MEDS: VOLTAREN 50 MG PO SCH (08:17)
[2017-05-09] MEDS: NovoLOG Insulin SQ PRN ×4 (08:18→22:33)
--- NOTE | 2017-05-09 09:34 | PCM.NOTE ---
Date and Time: 05/09/17932 Subjective Assessment: doing little better - Review of Systems Constitutional: No Fever, No Chills Eyes: No Symptoms Ears, Nose, & Throat: No Symptoms Respiratory: Orthopnea, Short Of Breath, Wheezing, No Cough Cardiac: No Chest Pain, No Edema, No Syncope Abdominal/Gastrointestinal: No Abdominal Pain, No Nausea, No Vomiting, No Diarrhea Genitourinary Symptoms: No Dysuria Musculoskeletal: No Back Pain, No Neck Pain Skin: No Rash Neurological: No Dizziness, No Focal Weakness, No Sensory Changes Psychological: No Symptoms Endocrine: No Symptoms Hematologic/Lymphatic: No Symptoms Immunological/Allergic: No Symptoms Objective Exam General Appearance: no apparent distress, alert Neurologic Exam: alert, oriented x 3, cooperative, normal mood/affect, nml cerebellar function, sensation nml, No motor deficits Skin Exam: normal color, warm, dry Eye Exam: PERRL, EOMI, eyes nml inspection Ears, Nose, Throat Exam: normal ENT inspection, pharynx normal, moist mucous membranes Neck Exam: normal inspection, non-tender, supple, full range of motion Respiratory Exam: respiratory distress, diminished breath sounds, accessory muscle use, prolonged expirations, crackles/rales, rhonchi, wheezing Cardiovascular Exam: regular rate/rhythm, normal heart sounds Gastrointestinal/Abdomen Exam: soft, No tenderness, No mass Extremity Exam: normal inspection, normal range of motion Back Exam: normal inspection, normal range of motion, No CVA tenderness, No vertebral tenderness Male Genitalia Exam: deferred Rectal Exam: deferred OBJECTIVE DATA Vital Signs: Vital Signs - 24 hr Temp Pulse Resp BP Pulse Ox 05/09/17 08:00 97.8 F 94 H 23 178/81 88 L 05/09/17 06:44 69 27 H 90 L 05/09/17 04:00 72 22 134/64 94 L 05/09/17 03:00 65 22 93 L 05/09/17 00:00 72 22 134/64 94 L 05/08/17 23:00 71 23 94 L 05/08/17 20:00 97.8 F 91 H 20 157/75 91 L 05/08/17 19:00 89 29 H 93 L 05/08/17 17:00 98.2 F 70 21 155/70 94 L 05/08/17 16:00 87 28 H 05/08/17 14:51 76 24 94 L 05/08/17 13:00 98.4 F 81 23 165/78 94 L 05/08/17 12:00 75 26 H 05/08/17 11:00 75 22 92 L Oxygen-Last 24 hours O2 Percentage 90% O2 Percentage 90% O2 Percentage 80% O2 Percentage 90% O2 Percentage 90% Pain Assessment - Last Documented Pain Intensity 0 Pain Scale Used 0-10 Pain Scale Intake and Output: Intake & Output 05/06/17 05/07/17 05/08/17 05/09/17 11:59 11:59 11:59 11:59 Intake Total 3004 Output Total 1175 Balance 1829 Weight 96.1 kg Lab Results: Accuchecks Date 05/08/17 Time 21:35 Accucheck Value: 323 Accucheck Value: 403 Accucheck Value: 329 Accucheck Value: 363 Multi-Disciplinary Progress Notes: Multi-Disciplinary Progress Notes 05/09/17 09:03 Respiratory Note by Lisa Mccray 0800PT OF BIPAP TO EAT PLACED ON 15LPM OXMIZER. 0905 PT RESTING WELL ON 15LPM OXMIZER. SPO2 87%. Initialized on 05/09/17 09:03 - END OF NOTE 05/08/17 17:54 Respiratory Note by Lisa Mccray LINCPERLA NOTIFIED EARLY TODAY ON POSSIBLE QUALIFICATION OF HOME BIPAP Initialized on 05/08/17 17:54 - END OF NOTE 05/08/17 17:52 Respiratory Note by Lisa Mccray 1750 PLACED BACK ON BIPAP PER PT REQUEST, SOB. Initialized on 05/08/17 17:52 - END OF NOTE 05/08/17 17:30 Respiratory Note by Lisa Mccray 1650 PT TAKEN OFF BIPAP AND PLACED ON 15LPM OXMIZER TO EAT. WILL MONITOR SPO2 AND PLACE BACK ON BIPAP WHEN NEEDED. 1720 SPO2 ON 15LPM 91%. WILL CONTINUE TO MONITOR SPO2. Initialized on 05/08/17 17:30 - END OF NOTE 05/08/17 11:42 Respiratory Note by Lisa Mccray PER DR DOE WANTS US TO SEE IF PT QUALFIES FOR HOME BIPAP Initialized on 05/08/17 11:42 - END OF NOTE 05/08/17 09:59 Respiratory Note by Mccray,Lisa 0855 SPO2 ON 45LPM AND 100% 74-85%. PT MOVED TO ICU AND PLACED ON BIPAP / 100 %. PT TOLERATING WELL WILL WEAN TOLERATED. 1000 SPO2 99%. WELL DEC FIO2 TO 90% . Initialized on 05/08/17 09:59 - END OF NOTE Assessment/Plan (1) Acute respiratory failure Current Visit: Yes Status: Acute Qualifiers: Respiratory failure complication: hypoxia and hypercapnia Qualified Code(s) : J96.01 - Acute respiratory failure with hypoxia; J96.02 - Acute respiratory failure with hypercapnia Code(s): J96.00 - ACUTE RESPIRATORY FAILURE, UNSP W HYPOXIA OR HYPERCAPNIA (2) HTN (hypertension) Current Visit: Yes Status: Acute Qualifiers: Hypertension type: essential hypertension Qualified Code(s): I10 - Essential (primary) hypertension Code(s): I10 - ESSENTIAL (PRIMARY) HYPERTENSION (3) Hypoxemia Current Visit: Yes Status: Acute Code(s): R09.02 - HYPOXEMIA (4) Pulmonary fibrosis Current Visit: Yes Status: Chronic Code(s): J84.10 - PULMONARY FIBROSIS, UNSPECIFIED (5) Type 2 diabetes mellitus Current Visit: Yes Status: Acute Qualifiers: Diabetes mellitus complication status: with hyperglycemia Diabetes mellitus joint terminal attack controller insulin use: unspecified joint terminal attack controller insulin use status Qualified Code(s): E11.65 - Type 2 diabetes mellitus with hyperglycemia
[2017-05-09] MEDS: NEURONTIN 300 MG PO SCH ×2 (09:51→22:32)
[2017-05-09] MEDS: Tessalon Perles 100 MG PO SCH ×3 (09:51→22:32)
[2017-05-09] MEDS: ECOTRIN 81 MG PO SCH (09:51)
[2017-05-09] MEDS: ceLEXa 20 MG PO SCH (09:51)
[2017-05-09] MEDS: ENOXAPARIN SODIUM SQ SCH (09:51)
[2017-05-09] MEDS: NORVASC 5 MG PO SCH (09:51)
[2017-05-09] MEDS ORDERED: NON-FORMULARY ITEM (Citalopram Hydrobromide [Celexa] 20 MG) PO SCH (10:00)
[2017-05-09] MEDS ORDERED: BABY ASPIRIN 81 MG CHEW PO SCH (10:00)
[2017-05-09] MEDS ORDERED: NON-FORMULARY ITEM (Amlodipine Besylate 10 Mg [Norvasc 10 Mg] 10 MG) PO SCH (10:00)
[2017-05-09] MEDS: PATIENT OWN MEDICATION PO SCH ×2 (11:58→17:50)
[2017-05-09] MEDS: Ativan 2 MG/1 ML VIAL IV PRN (19:57)
[2017-05-09] MEDS: Zithromax 500 MG/ 250 ML NaCl Premix 500 MG/250 ML IVPB IV SCH (22:32)
[2017-05-09] MEDS: ROCEPHIN 1 Gm-D5w 50 ml Bag** 1 G/50 ML IVPB IV SCH (22:32)
[2017-05-09] MEDS: ZOCOR 20MG PO SCH (22:32)
[2017-05-09] MEDS: Cozaar 50 MG PO SCH (22:32)
[2017-05-09] MEDS ORDERED: Ativan 2 MG/1 ML VIAL IV ONE (23:30)
[2017-05-10] MEDS: Sodium Chloride 0.9% 1000 ML 1,000 ML IV SCH (02:40)
[2017-05-10] MEDS: DUONEB 0.5-3 MG/3 ml Neb IH SCH ×2 (02:44→06:34)
[2017-05-10] MEDS: solu-MEDROL 125 MG IV SCH ×2 (03:28→09:15)
[2017-05-10] MEDS: Ativan 2 MG/1 ML VIAL IV PRN (07:03)
[2017-05-10] MEDS ORDERED: Ativan 2 MG/1 ML VIAL IV PRN (07:17)
[2017-05-10] MEDS ORDERED: Morphine PCA 1 MG/ML 30 ML IV PRN ×2 (07:17→07:38)
[2017-05-10] MEDS ORDERED: Sodium Chloride 0.9% 500 ML 500 ML IV SCH (07:30)
[2017-05-10 07:44] VITALS: O2SAT 57
[2017-05-10] MEDS: NovoLOG Insulin SQ PRN (07:48)
[2017-05-10 09:04] VITALS: BP 178/82; PULSE 122
[2017-05-10] MEDS: Glucophage 500 MG PO SCH (09:08)
[2017-05-10] MEDS: Glucotrol 5 MG PO SCH (09:08)
[2017-05-10] MEDS: PATIENT OWN MEDICATION PO SCH (09:08)
--- NOTE | 2017-05-10 09:10 | PCM.DS ---
Discharge Summary Date of Admission: 05/08/17 08:45 Date of Discharge: Patient is being discharged to [facility] general inpatient care for comfort care Admitting Physician: DAKOTA DOE Consults: Consults on Case 05/08/17 10:14 Nutritional Consult Primary Care Provider: DAKOTA DOE Allergies Allergies No Known Drug Allergies Allergy (Unverified 04/23/17 16:16) Hospital Summary - Hospital Course Hospital Course: patient condition is deteriorating, patient doesnot want to be on respiratory support and want to be on comfort care. - Vitals & Intake/Output Vital Signs: Vital Signs Temperature 97.8 F 05/10/17 08:00 Pulse Rate 122 H 05/10/17 08:00 Respiratory Rate 56 H 05/10/17 08:00 Blood Pressure 178/82 05/10/17 08:00 O2 Sat by Pulse Oximetry 57 L 05/10/17 08:00 Oxygen-Last Documented O2 Percentage 100% Intake & Output: Intake & Output 05/07/17 05/08/17 05/09/17 05/10/17 11:59 11:59 11:59 11:59 Intake Total 3004 2622 Output Total 1175 595 Balance 1829 7 Weight 96.1 kg 97.3 kg - Lab Result Diagrams: 05/08/17 07:30 05/08/17 07:30 Lab Results-Last 24 Hrs: Accuchecks Date 05/10/17 Date 05/09/17 Time 07:30 Time 22:00 Accucheck Value: 315 Accucheck Value: 281 Accucheck Value: 270 Accucheck Value: 301 Micro Results-Entire Visit: Accuchecks Date 05/10/1705/09/17 Time 07:30 Time 22:00 Accucheck Value: 315 Accucheck Value: 281 Accucheck Value: 270 Accucheck Value: 301 Discharge Exam General Appearance: severe distress, alert Neurologic Exam: alert, oriented x 3, cooperative, No motor deficits Skin Exam: normal color, warm, dry Eye Exam: PERRL, EOMI, eyes nml inspection Ears, Nose, Throat Exam: normal ENT inspection, pharynx normal, moist mucous membranes Neck Exam: normal inspection, non-tender, supple, full range of motion Respiratory Exam: diminished breath sounds, prolonged expirations, crackles/ rales, rhonchi, wheezing, No respiratory distress Cardiovascular Exam: regular rate/rhythm, normal heart sounds Gastrointestinal/Abdomen Exam: soft, No tenderness, No mass Extremity Exam: normal inspection, normal range of motion Back Exam: normal inspection, normal range of motion, No CVA tenderness, No vertebral tenderness Male Genitalia Exam: deferred Rectal Exam: deferred Final Diagnosis/Problem List - Final Discharge Diagnosis/Problem (1) Acute respiratory failure Current Visit: Yes Status: Acute (2) HTN (hypertension) Current Visit: Yes Status: Acute (3) Hypoxemia Current Visit: Yes Status: Acute (4) Pulmonary fibrosis Current Visit: Yes Status: Chronic (5) Type 2 diabetes mellitus Current Visit: Yes Status: Acute - Discharge Discharge Date: 05/10/17 Disposition: XFER OTHER Condition: Stable Prescriptions: No Action Aspirin 81 gm Chew [Baby Aspirin 81 mg Chew] 81 mg PO DAILY Citalopram Hydrobromide [Celexa] 20 mg PO DAILY Tramadol HCl 50 mg [Ultram 50 mg] 50 mg PO HSPRN PRN PRN Reason: leg pain Gabapentin [Neurontin] 2 tab PO BID Diclofenac Sodium 75 mg PO BID Metformin HCl 500 mg [Glucophage 500 MG] 1,000 mg PO BREAKFAST Glipizide 5 mg [Glucotrol 5 MG] 5 mg PO BREAKFAST Atorvastatin Calcium 80 mg PO QPM Amlodipine Besylate 10 mg [Norvasc 10 MG] 10 mg PO QAM Losartan Potassium 100 mg PO QPM Pirfenidone [Esbriet] 801 mg PO TIDWMEALS Benzonatate 100 mg PO TID Metformin HCl 500 mg [Glucophage 500 MG] 500 mg PO DINNER Glipizide 5 mg [Glucotrol 5 MG] 2.5 mg PO DINNER Follow up with: DAKOTA DOE MD [Primary Care Provider] -
[2017-05-10] MEDS: ECOTRIN 81 MG PO SCH (09:26)
[2017-05-10] MEDS: ceLEXa 20 MG PO SCH (09:26)
[2017-05-10] MEDS: NORVASC 5 MG PO SCH (09:27)
[2017-05-10] MEDS: NEURONTIN 300 MG PO SCH (09:27)
[2017-05-10] MEDS: Tessalon Perles 100 MG PO SCH (09:27)
== END 2017-05-10 10:00 | DRG 189 ==
LOC: ED 01:36 → MED SURG 04:29 → OBSVTOIN 08:45 → ICU 08:45
PROVIDERS: ADMIT General Practice; ATTEND General Practice
DX: J96.01 Acute respiratory failure with hypoxia (principal); J96.02 Acute respiratory failure with hypercapnia; I10 Essential (primary) hypertension; J84.10 Pulmonary fibrosis, unspecified; I50.9 Heart failure, unspecified; E11.65 Type 2 diabetes mellitus with hyperglycemia; Z79.4 Long term (current) use of insulin; J44.9 Chronic obstructive pulmonary disease, unspecified; G47.30 Sleep apnea, unspecified; M19.90 Unspecified osteoarthritis, unspecified site; F32.9 Major depressive disorder, single episode, unspecified; Z87.01 Personal history of pneumonia (recurrent); Z79.899 Other long term (current) drug therapy; Z85.828 Personal history of other malignant neoplasm of skin
CPT/HCPCS: 36415; 36600; 71010; 80053; 81000; 82150; 82375; 82803; 82962; 83036; 83605; 83690; 83735; 83880; 84484; 85007; 85025; 85610; 85730; 87040; 87070; 93005; 93041; 93268; 94002; 94003; 94640; 94760; 96374; 99285; J0456; J0696; J1650; J1940; J2060; J2270; J2930; J3475; A9270-GY